=== PATIENT | female | born 1970 | race Caucasian/White ===

== ENCOUNTER 2020-03-03 22:05 | Emergency (ER) | payer BC, OTHER ==
[~2020-03-03] VITALS: Ht 160 cm; Wt 85.0 kg
[2020-03-03 22:14] VITALS: BP 164/90
--- OUTSIDE RECORDS SUMMARY | 2020-03-03 22:14 | XMS REPORT | Continuity of Care Document ---
Author Organization Unknown Address Unknown Phone Unavailable Allergies There is no data. Medications There is no data. Problems There is no data. Procedures There is no data. Results Test Result Range CULTURE, URINE - 12/04/18 17:55 CULTURE, URINE, ROUTINE SEE NOTE NRG CBC - 06/25/19 08:01 WHITE BLOOD CELL COUNT 7.0 Thousand/uL 3 .8-10.8 RED BLOOD CELL COUNT 4.98 Million/uL 3.8 0-5.10 HEMOGLOBIN 14.3 g/dL 11.7-15.5 HEMATOCRIT 43.3 % 35.0-45.0 MCV 86.9 fL 80.0-100.0 MCH 28.7 pg 27.0-33.0 MCHC 33.0 g/dL 32.0-36.0 RDW 13.9 % 11.0-15.0 PLATELET COUNT 228 Thousand/uL 140-400 MPV 9.5 fL 7.5-12.5 ABSOLUTE NEUTROPHILS 3983 cells/uL 1500- 7800 ABSOLUTE LYMPHOCYTES 2282 cells/uL 850-3 900 ABSOLUTE MONOCYTES 420 cells/uL 200-950 ABSOLUTE EOSINOPHILS 273 cells/uL 15-500 ABSOLUTE BASOPHILS 42 cells/uL 0-200 NEUTROPHILS 56.9 % NRG LYMPHOCYTES 32.6 % NRG MONOCYTES 6.0 % NRG EOSINOPHILS 3.9 % NRG BASOPHILS 0.6 % NRG Encounters ACCT No. Visit Date/Time Discharge Status Pt. Type Provider Facility Loc./Unit Complaint [id number] 06/25/2019 07:45:00 06/25/2019 23:59: 59 CLS Outpatient SELF, STEPHY Gambino [facility] [id number] 06/25/2019 07:45:00 Document Registration [id number] 12/02/2018 15:20:00 Document Registration [id number] 03/03/2020 22:07:[address] Emergency GIFTY RODRIGUEZ DO [facility] ER FS UTI SYMPTOMS
--- NOTE | 2020-03-03 22:23 | ED GU-Female ---
General Stated Complaint: UTI SYMPTOMS Source: patient Exam Limitations: no limitations History of Present Illness Date Seen by Provider: Mar 03, 2020 Time Seen by Provider: 22:08 Initial Comments The patient is a pleasant 49-year-old female who presents for evaluation of dysuria and urinary urgency over the last 1-2 days. She states this feels identical to UTIs she has had in the past. She has no other complaints. She denies fevers or chills, abdominal pain, nausea or vomiting. Severity/Quality: mild Location: suprapubic Radiation: none Activities at Onset: none Associated Symptoms: urinary frequency Allergies and Home Medications Patient Home Medication List Home Medication List Reviewed: Yes Review of Systems Review of Systems Constitutional: no symptoms reported EENTM: no symptoms reported Respiratory: no symptoms reported Cardiovascular: no symptoms reported Gastrointestinal: no symptoms reported Genitourinary: burning, dysuria, frequency, urgency Musculoskeletal: no symptoms reported Skin: no symptoms reported Psychiatric/Neurological: No Symptoms Reported Endocrine: No Symptoms Reported Hematologic/Lymphatic: No Symptoms Reported All Other Systemes Reviewed Negative Unless Noted: Yes Past Ycaitry-Arxvho-Bbmwrf Hx Past Med/Social Hx: Reviewed Nursing Past Med/Soc Hx Patient Social History Recent Foreign Travel: No Contact w/Someone Who Travel: No Physical Exam Vital Signs Capillary Refill : Height, Weight, BMI Height: '" Weight: lbs. oz. 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 Referrals: SELF,STEPHY LOOMIS (PCP/Family) Primary Care Physician Patient Instructions: Urinary Tract Infection, Adult (DC) Add. Discharge Instructions: Take the prescribed medicine as directed. Follow-up with your doctor in the next 1-2 days. Return to the Emergency Department immediately for new or worsening symptoms. MICHAEL DURBIN DO Mar 03, 2020 22:23
[2020-03-03] MEDS ORDERED: SULF1TAB35 PO (22:26)
[2020-03-03] MEDS ORDERED: PHEN-640 PO (22:26)
[2020-03-03 22:38] LABS: BACTERIA,URINE FEW /HPF; BILIRUBIN,URINE NEGATIVE (NEGATIVE); CLARITY,URINE CLEAR; COLOR,URINE YELLOW; GLUCOSE, URINE (UA) NEGATIVE (NEGATIVE); KETONES,URINE NEGATIVE (NEGATIVE); LEUKOCYTE ESTERASE ,URINE 1+ (NEGATIVE); NITRITE,URINE NEGATIVE (NEGATIVE); PH,URINE 6.5 (5-9); PROTEIN,URINE NEGATIVE (NEGATIVE); SQUAMOUS EPITHELIAL CELL,UR 0-2 /HPF
== END 2020-03-03 22:29 | disposition home or self-care (01) ==
LOC: ER FS 22:07
DX: N39.0 Urinary tract infection, site not specified (principal)
CPT/HCPCS: 81000; 87088; 99282